=== PATIENT | female | born 1960 | race Asian ===

== ENCOUNTER → 2018-02-26 14:28 | Outpatient (CLI) | payer OTHER, SELFPAY ==
--- NOTE | 2018-02-26 | DI.MG.S_ITS ---
BILATERAL DIGITAL SCREENING MAMMOGRAM 3D/2D WITH CAD WITH AUGMENTATION: 02/26/2018 CLINICAL: Routine screening. Comparison is made to exams dated: 05/10/2016 mammogram, 05/04/2015 mammogram, and 11/13/2012 mammogram - [facility]. The tissue of both breasts is extremely dense, which lowers the sensitivity of mammography. Current study was also evaluated with a Computer Aided Detection (CAD) system. Bilateral breast implants are stable. No significant masses, calcifications, or other findings are seen in either breast. There has been no significant interval change. IMPRESSION: BENIGN There is no mammographic evidence of malignancy. A 1 year screening mammogram is recommended. This exam was interpreted at Station ID: [id number]. NOTE: For mammograms, a report in lay terms will be sent to the patient. Approximately 15% of breast malignancies will not be visualized mammographically. In the management of a palpable breast mass, a negative mammogram must not discourage biopsy of a clinically suspicious lesion. Electronically Signed By: Ravi perea/kuldip:03/01/2018 07:00:32 letter sent: Normal Exam ACR BI-RADS Category 2: Benign Finding(s) 3342F
== END ==
PROVIDERS: Family Provider Family Medicine; PCP Family Medicine; Visit Provider Family Medicine
DX: Z12.31 Encounter for screening mammogram for malignant neoplasm of breast (principal)
CPT/HCPCS: 77063; 77067

== ENCOUNTER → 2019-04-09 11:06 | Outpatient (CLI) | payer OTHER, SELFPAY ==
--- NOTE | 2019-04-09 | DI.MG.S_ITS ---
BILATERAL DIGITAL SCREENING MAMMOGRAM 3D/2D WITH CAD WITH AUGMENTATION: 04/09/2019 CLINICAL: Routine screening. Comparison is made to exams dated: 02/26/2018 mammogram, 05/10/2016 mammogram, 05/04/2015 mammogram, 11/13/2012 mammogram, and 11/10/2011 mammogram - [facility]. The tissue of both breasts is extremely dense, which lowers the sensitivity of mammography. Current study was also evaluated with a Computer Aided Detection (CAD) system. There is an oval asymmetry with an obscured margin in the right breast middle depth superior region seen on the mediolateral oblique view only. Bilateral breast implants are present and appear stable to prior exams. No other significant masses, calcifications, or other findings are seen in either breast. IMPRESSION: INCOMPLETE: NEEDS ADDITIONAL IMAGING EVALUATION The oval asymmetry in the right breast is indeterminate. Additional views with possible ultrasound are recommended. This exam was interpreted at Station ID: [id number]. NOTE: For mammograms, a report in lay terms will be sent to the patient. Approximately 15% of breast malignancies will not be visualized mammographically. In the management of a palpable breast mass, a negative mammogram must not discourage biopsy of a clinically suspicious lesion. Electronically Signed By: Ravi Graham M.D. ecl/:04/09/2019 20:07:18 letter sent: Additional Imaging Needed ACR BI-RADS Category 0: Incomplete 3340F
--- NOTE | 2019-04-09 | DI.RAD.S_ITS ---
PROCEDURE: XR FOOT RT MIN 3V INDICATIONS: BUNION,RIGHT FOOT,PAIN TECHNIQUE: The views of the foot were acquired. COMPARISON: None. FINDINGS: Bones: No fractures or dislocations. No suspicious bony lesions. There is degenerative joint disease moderate at the first metatarsophalangeal joint, and mild at multiple interphalangeal joins. Calcaneal spurring. Osteophytes of the sesamoids. Soft tissues: No tibiotalar joint effusion. Achilles tendon appears normal. IMPRESSION: Degenerative joint disease and calcaneal spurring. Dictated by: Prachi Condon M.D. on 04/09/2019 at 18:14 Approved by: Prachi Condon M.D. on 04/09/2019 at 18:17
== END ==
PROVIDERS: PCP Student in an Organized Health Care Education/Training Program; Visit Provider Student in an Organized Health Care Education/Training Program
DX: Z12.31 Encounter for screening mammogram for malignant neoplasm of breast (principal); M21.611 Bunion of right foot; M79.671 Pain in right foot; M19.071 Primary osteoarthritis, right ankle and foot; M77.31 Calcaneal spur, right foot
CPT/HCPCS: 73630; 77063; 77067

== ENCOUNTER → 2019-05-07 12:45 | Outpatient (CLI) | payer OTHER, SELFPAY ==
--- NOTE | 2019-05-07 | DI.MG.S_ITS ---
UNILATERAL RIGHT DIGITAL DIAGNOSTIC MAMMOGRAM 3D/2D WITH ADDITIONAL VIEWS: 05/07/2019 CLINICAL: Additional evaluation requested from prior study. Comparison is made to exams dated: 04/09/2019 mammogram, 02/26/2018 mammogram, 05/10/2016 mammogram, and 05/04/2015 mammogram - [facility]. The tissue of right breast is extremely dense, which lowers the sensitivity of mammography. Asymmetry in the right breast middle depth superior region seen on the screening mediolateral oblique view only is not seen in additional views. No other significant masses or calcifications are seen in the breast. Implant is displaced from the field of view. IMPRESSION: INCOMPLETE: NEEDS ADDITIONAL IMAGING EVALUATION Asymmetry in the right breast is no longer seen. A targeted ultrasound is recommended for a second look due to the dense breast tissue. This exam was interpreted at Station ID: [id number]. NOTE: For mammograms, a report in lay terms will be sent to the patient. Approximately 15% of breast malignancies will not be visualized mammographically. In the management of a palpable breast mass, a negative mammogram must not discourage biopsy of a clinically suspicious lesion. Electronically Signed By: Albin Lao M.D. slc/:05/07/2019 14:00:47 ACR BI-RADS Category 0: Incomplete 3340F
--- NOTE | 2019-05-07 | DI.US.S_ITS ---
LIMITED ULTRASOUND OF RIGHT BREAST: 05/07/2019 CLINICAL: Patient returns today to evaluate a focal asymmetry in the right breast. Comparison is made to exams dated: 05/07/2019 mammogram, 04/09/2019 mammogram, 02/26/2018 mammogram, 05/10/2016 mammogram, 05/04/2015 mammogram, and 11/13/2012 mammogram - [facility]. Real-time ultrasound of the right breast 2 o'clock region was performed. Burris scale images of the real-time examination were reviewed. No significant abnormalities were seen sonographically in the right breast. IMPRESSION: NEGATIVE There is no sonographic evidence of malignancy. The abnormality seen on the screen mammogram most likely represents a ridge of fibroglandular tissue. Return to annual mammogram screening schedule is recommended. Exam results were conveyed to the patient by the software development leader. This exam was interpreted at Station ID: [id number]. Electronically Signed By: Albin Lao M.D. slc/:05/07/2019 13:59:34 letter sent: Normal Exam Ultrasound BI-RADS: 1 Negative
== END ==
PROVIDERS: PCP Student in an Organized Health Care Education/Training Program; Visit Provider Student in an Organized Health Care Education/Training Program
DX: R92.8 Other abnormal and inconclusive findings on diagnostic imaging of breast (principal); N64.89 Other specified disorders of breast
CPT/HCPCS: 76642; 77065; G0279

== ENCOUNTER → 2019-11-15 15:56 | Outpatient (CLI) | payer OTHER, SELFPAY ==
[2019-11-15 16:15] LABS: Add Manual Diff / Slide Review NO; Basophils Absolute Auto 100 /uL (0-100); Basophils Percent Auto 1.3 % (0-2); Eosinophils Absolute Auto 200 /uL (0-450); Eosinophils Percent Auto 1.8 % (2-4); Hematocrit 26.8 % (36-46); Lymphocytes Absolute Auto 1600 /uL (1100-4500); Lymphocytes Percent Auto 17.8 % (25-40); Mean Corpuscular HGB Conc 33.7 % (30-36); Mean Corpuscular Hemoglobin 31.1 PG (26-34); Mean Corpuscular Volume 92.3 fL (80-100); Monocytes Absolute Auto 600 /uL (0-900); Monocytes Percent Auto 6.9 % (3-14); Neutrophils Absolute Auto 6600 /uL (1500-7000); Neutrophils Percent Auto 72.2 % (50-75); Platelet Count 833 X10^3/uL (150-400); Red Blood Cell Count 2.91 X10^6/uL (4.0-5.2); Red Cell Distribution Width 16.1 % (11.6-14.8); White Blood Cell Count 9.2 X10^3/uL (4.5-11.0)
[2019-11-15 16:37] LABS: Anisocytosis 2+; Hypochromasia 2+; Poikilocytosis 1+
[2019-11-15 17:27] LABS: TSH w/ Reflex to FT4 5.23 uIU/mL (0.47-4.68)
[2019-11-15 17:55] LABS: Free T4, Direct Thyroxine 1.07 ng/dL (0.78-2.19)
== END ==
PROVIDERS: PCP Student in an Organized Health Care Education/Training Program; Referring Provider Student in an Organized Health Care Education/Training Program; Visit Provider Student in an Organized Health Care Education/Training Program
DX: D64.9 Anemia, unspecified (principal); E03.9 Hypothyroidism, unspecified
CPT/HCPCS: 36415; 84439; 84443; 85025

== ENCOUNTER → 2020-05-11 10:00 | Outpatient (CLI) | payer OTHER, SELFPAY ==
--- NOTE | 2020-05-11 | DI.MG.S_ITS ---
BILATERAL DIGITAL SCREENING MAMMOGRAM 3D/2D WITH CAD WITH AUGMENTATION: 05/11/2020 CLINICAL: Routine screening. Comparison is made to exams dated: 04/09/2019 mammogram, 02/26/2018 mammogram, and 05/10/2016 mammogram - [facility]. The tissue of both breasts is extremely dense, which lowers the sensitivity of mammography. Current study was also evaluated with a Computer Aided Detection (CAD) system. Bilateral breast implants are stable. No significant masses, calcifications, or other findings are seen in either breast. There has been no significant interval change. IMPRESSION: NEGATIVE There is no mammographic evidence of malignancy. A 1 year screening mammogram is recommended. This exam was interpreted at Station ID: [id number]. NOTE: For mammograms, a report in lay terms will be sent to the patient. Approximately 15% of breast malignancies will not be visualized mammographically. In the management of a palpable breast mass, a negative mammogram must not discourage biopsy of a clinically suspicious lesion. Electronically Signed By: Alma Rosa ventura/kuldip:05/12/2020 16:38:21 letter sent: Normal Exam ACR BI-RADS Category 1: Negative 3341F
== END ==
PROVIDERS: PCP Student in an Organized Health Care Education/Training Program; Referring Provider Student in an Organized Health Care Education/Training Program; Visit Provider Student in an Organized Health Care Education/Training Program
DX: Z12.31 Encounter for screening mammogram for malignant neoplasm of breast (principal)
CPT/HCPCS: 77063; 77067

== ENCOUNTER → 2020-10-01 11:57 | Outpatient (CLI) | payer OTHER, SELFPAY ==
[2020-10-01] MEDS: COVID-19 VACC #1, MRNA(MOD) 100 MCG/0.5 ML VIAL IM (12:04)
== END ==
PROVIDERS: PCP Student in an Organized Health Care Education/Training Program; Visit Provider Internal Medicine
DX: Z23 Encounter for immunization (principal)
CPT/HCPCS: 0011A; 91301

== ENCOUNTER → 2020-10-29 10:15 | Outpatient (CLI) | payer OTHER, SELFPAY ==
[2020-10-29] MEDS: COVID-19 VACC #2, MRNA(MOD) 100 MCG/0.5 ML VIAL IM (10:23)
== END ==
PROVIDERS: PCP Student in an Organized Health Care Education/Training Program; Visit Provider Internal Medicine
DX: Z23 Encounter for immunization (principal)
CPT/HCPCS: 0012A; 91301

== ENCOUNTER → 2021-05-13 10:28 | Outpatient (CLI) | payer OTHER, SELFPAY ==
--- NOTE | 2021-05-13 10:30 | DI.MG.S_ITS ---
BILATERAL DIGITAL SCREENING MAMMOGRAM 3D/2D WITH CAD WITH AUGMENTATION: 05/13/2021 CLINICAL: Routine screening. Comparison is made to exams dated: 05/11/2020 mammogram, 04/09/2019 mammogram, and 02/26/2018 mammogram - [facility]. The tissue of both breasts is extremely dense, which lowers the sensitivity of mammography. Current study was also evaluated with a Computer Aided Detection (CAD) system. Bilateral breast implants are stable. No significant masses, calcifications, or other findings are seen in either breast. There has been no significant interval change. IMPRESSION: NEGATIVE There is no mammographic evidence of malignancy. A 1 year screening mammogram is recommended. This exam was interpreted at Station ID: [id number]. NOTE: For mammograms, a report in lay terms will be sent to the patient. Approximately 15% of breast malignancies will not be visualized mammographically. In the management of a palpable breast mass, a negative mammogram must not discourage biopsy of a clinically suspicious lesion. Electronically Signed By: Sander osman/kuldip:05/13/2021 11:30:56 letter sent: Normal Exam ACR BI-RADS Category 1: Negative 3341F
[2021-05-13 13:30] LABS: Thyroid Stimulating Hormone 0.043 uIU/mL (0.47-4.68)
== END ==
PROVIDERS: PCP Student in an Organized Health Care Education/Training Program; Referring Provider Student in an Organized Health Care Education/Training Program; Visit Provider Student in an Organized Health Care Education/Training Program
DX: Z12.31 Encounter for screening mammogram for malignant neoplasm of breast (principal); E03.9 Hypothyroidism, unspecified
CPT/HCPCS: 36415; 77063; 77067; 84443

== ENCOUNTER → 2022-06-17 12:49 | Outpatient (CLI) | payer OTHER, SELFPAY ==
--- NOTE | 2022-06-17 | DI.MG.S_ITS ---
BILATERAL DIGITAL SCREENING MAMMOGRAM 3D/2D WITH CAD WITH AUGMENTATION: 06/17/2022 CLINICAL: Routine screening. Comparison is made to exams dated: 05/13/2021 mammogram, 05/11/2020 mammogram, and 04/09/2019 mammogram - [facility]. Both breasts are extremely dense, which lowers the sensitivity of mammography (category d />75% glandular tissue). Current study was also evaluated with a Computer Aided Detection (CAD) system. Bilateral breast implants are stable. No significant masses, calcifications, or other findings are seen in either breast. There has been no significant interval change. IMPRESSION: NEGATIVE There is no mammographic evidence of malignancy. A 1 year screening mammogram is recommended. This exam was interpreted at Station ID: [id number]. NOTE: For mammograms, a report in lay terms will be sent to the patient. Approximately 15% of breast malignancies will not be visualized mammographically. In the management of a palpable breast mass, a negative mammogram must not discourage biopsy of a clinically suspicious lesion. Electronically Signed By: Baltazar lee/kuldip:06/17/2022 19:16:21 letter sent: Normal Exam ACR BI-RADS Category 1: Negative 3341F
== END ==
PROVIDERS: PCP Family Medicine; Referring Provider Family Medicine; Visit Provider Family Medicine
DX: Z12.31 Encounter for screening mammogram for malignant neoplasm of breast (principal)
CPT/HCPCS: 77063; 77067

== ENCOUNTER → 2023-07-14 12:49 | Outpatient (CLI) | payer OTHER, SELFPAY ==
--- NOTE | 2023-07-14 | DI.MG.S_ITS ---
BILATERAL DIGITAL SCREENING MAMMOGRAM 3D/2D WITH CAD WITH AUGMENTATION: 07/14/2023 CLINICAL: Routine screening. Comparison is made to exams dated: 06/17/2022 mammogram, 05/13/2021 mammogram, and 05/11/2020 mammogram - [facility]. Both breasts are extremely dense, which lowers the sensitivity of mammography (category d />75% glandular tissue). Current study was also evaluated with a Computer Aided Detection (CAD) system. Bilateral breast implants are stable. No significant masses, calcifications, or other findings are seen in either breast. There has been no significant interval change. IMPRESSION: BENIGN There is no mammographic evidence of malignancy. A 1 year screening mammogram is recommended. Based on the Tyrer Cuzick model (a risk assessment model) the patient's lifetime risk is 15.5% and her 10 year risk is 6.6%. According to the ACR, ACS, and NCCN guidelines, an annual breast MRI exam along with mammogram is recommended if the patient's lifetime risk is 20% or greater. This exam was interpreted at Station ID: [id number]. NOTE: For mammograms, a report in lay terms will be sent to the patient. Approximately 15% of breast malignancies will not be visualized mammographically. In the management of a palpable breast mass, a negative mammogram must not discourage biopsy of a clinically suspicious lesion. Electronically Signed By: Carleen Nash M.D., PH.D andi/kuldip:07/14/2023 23:35:33 letter sent: Normal Exam ACR BI-RADS Category 2: Benign Finding(s) 3342F
== END ==
LOC: MAMMO 12:50
PROVIDERS: PCP Family Medicine; Referring Provider Family Medicine; Visit Provider Family Medicine
DX: Z12.31 Encounter for screening mammogram for malignant neoplasm of breast (principal); R92.343 Mammographic extreme density, bilateral breasts
CPT/HCPCS: 77063; 77067

== ENCOUNTER → 2024-07-31 15:06 | Outpatient (CLI) | payer OTHER, SELFPAY ==
--- NOTE | 2024-07-31 15:07 | DI.MG.S_ITS ---
BILATERAL DIGITAL SCREENING MAMMOGRAM 3D/2D WITH CAD WITH AUGMENTATION: 07/31/2024 CLINICAL: Routine screening. Comparison is made to exams dated: 07/14/2023 mammogram, 05/13/2021 mammogram, and 06/17/2022 mammogram - [facility]. The breasts are extremely dense, which lowers the sensitivity of mammography (category d />75% glandular tissue). Current study was also evaluated with a Computer Aided Detection (CAD) system. Bilateral breast implants are stable. No significant masses, calcifications, or other findings are seen in either breast. There has been no significant interval change. IMPRESSION: NEGATIVE There is no mammographic evidence of malignancy. A 1 year screening mammogram is recommended. Based on the Tyrer Cuzick model (a risk assessment model) the patient's lifetime risk is 15.1% and her 10 year risk is 6.7%. According to the ACR, ACS, and NCCN guidelines, an annual breast MRI exam along with mammogram is recommended if the patient's lifetime risk is 20% or greater. This exam was interpreted at Station ID: [id number]. NOTE: For mammograms, a report in lay terms will be sent to the patient. Approximately 15% of breast malignancies will not be visualized mammographically. In the management of a palpable breast mass, a negative mammogram must not discourage biopsy of a clinically suspicious lesion. Electronically Signed By: Baltazar khan/kuldip:08/01/2024 07:23:25 letter sent: Normal Exam ACR BI-RADS Category 1: Negative
== END ==
PROVIDERS: PCP Family Medicine; Referring Provider Family Medicine; Visit Provider Family Medicine
DX: Z12.31 Encounter for screening mammogram for malignant neoplasm of breast (principal); R92.343 Mammographic extreme density, bilateral breasts
CPT/HCPCS: 77063; 77067

== ENCOUNTER 2025-05-30 07:34 | Day surgery (SDC) | payer OTHER, SELFPAY ==
[2025-05-23 12:40] VITALS: BMI 26.7
--- NOTE | 2025-05-30 | PATH_ITS ---
[facility] Accession Number: [id number] No. of containers..02 Tissue . 01 Material submitted: . PART A: colon - COLON, ASCENDING POLYP PART B: colon - COLON, TRANSVERSE . 01 Diagnosis: A: ASCENDING COLON, POLYPECTOMY: Sessile serrated adenoma/polyp. - B: TRANSVERSE COLON: Mild active chronic colitis, negative for granulomas, dysplasia, or malignancy, see comment. [facility] 06/03/2025 1508 Local . 01 Comment: Part B: The differential includes infection, medication-related injury, and mucosal trauma/prolapse, and inflammatory bowel disease among others. Clinical correlation is recommended. . 01 Electronically signed: . Brandi Lockett MD, Pathologist NPI- [id number] . 01 Gross description: . A. Received in formalin with two patient identifiers, and ascending colon polyp are two, 0.5-0.7 cm rios tissue fragments, entirely submitted in A1. B. Received in formalin with two patient identifiers, and transverse colon are four, 0.2-0.4 cm rios tissue fragments, entirely submitted in B1. ([id number]) /MRV 06/03/2025 1110 Local . 01 Pathologist provided ICD-10: R19.5 . 01 CPT . 799544, [id number] Specimen Comment: A courtesy copy of this report has been sent to [phone] Performed at: [address] [facility] [address], [place], [place] [id number] MD Sander Santiago MD Phone: [phone]
[2025-05-30 08:27] VITALS: BP 141/78; PULSE 84; RESP 16; TEMP 36.3; O2SAT 98
[2025-05-30] MEDS: LACTATED RINGERS 1,000 ML 42 ML IV (08:30)
--- NOTE | 2025-05-30 08:39 | PM.PREOP ---
Pre-operative Note COVID-19 COVID-19 status: Not tested Interval Note History & Physical reviewed/Exam performed by Physician: Yes Changes to H&P: No ASA Class (for procedural sedation): III
--- NOTE | 2025-05-30 09:26 | P.OP.COLON_ITS ---
Operative Date/Time/Diagnoses Date of procedure: 05/30/25 Time of procedure: 09:26 Pre-op diagnosis: Positive fecal immunochemical test Post-op diagnosis: same Procedure & Clinicians Study performed: Colonoscopy Same procedure(s) as scheduled: Yes Surgeon: Alessandro Gomez Anesthesia Type: MAC +/- Procedure Notes Procedure in detail: Surgeon: Alessandro Gomez MD Anesthesia: Soheila Vitor PSYCHIATRIC AIDE INSTRUCTOR Procedure: The patient was brought to the endoscopy suite, placed in left late ral decubitus position. The patient was connected to monitoring devices. A time-out was performed. Sedation was administered. Once the patient was adequately sedated, a digital rectal exam was performed and was normal. The scope was then inserted and advanced to the cecum where the appendiceal orifice was identified and photographed. The scope was then slowly withdrawn over greater than 6 minutes. The mucosa was thoroughly inspected. There was a sessile 1 cm polyp in the ascending colon removed with a cold snare in two passes. There was a short segment of inflamed, denuded mucosa in the mid transverse colon and biopsies were taken with Jumbo forceps. The rest of the colon was normal. The scope was retroflexed in the rectum. No other abnormalities were found. The scope was straightened and removed. The patient was awakened and brought to recovery. Scope withdrawal time: 21 minutes Sedation time: 25 minutes Findings: 1 cm sessile polyp in the ascending colon and a short-segment of inflamed denuded mucosa in the mid transverse colon Estimated Blood Loss: 5 Complications: none Post-procedure Disposition: PACU
[2025-05-30 09:28] VITALS: BP 142/78; PULSE 82; RESP 16; TEMP 36.3; O2SAT 96
[2025-05-30 09:30] VITALS: BP 130/72; PULSE 73; RESP 16; TEMP 36.3; O2SAT 99
[2025-05-30 09:35] VITALS: BP 127/72; PULSE 71; RESP 20; TEMP 36.2; O2SAT 99
[2025-05-30 09:40] VITALS: BP 127/75; PULSE 71; RESP 20; TEMP 36.2; O2SAT 99
[2025-05-30 09:45] VITALS: BP 128/75; PULSE 71; RESP 20; TEMP 36.2; O2SAT 97
== END 2025-05-30 09:58 | disposition home or self-care (01) ==
PROVIDERS: PCP Family Medicine; Referring Provider Surgery; Visit Provider Surgery
PROC: 0DJD8ZZ Inspection of Lower Intestinal Tract, Via Natural or Artificial Opening Endoscopic (ICD-10-PCS; CPT 45378; principal; 2025-05-30 09:00)
DX: Z12.11 Encounter for screening for malignant neoplasm of colon (principal); R19.5 Other fecal abnormalities; I25.2 Old myocardial infarction; Z79.01 Long term (current) use of anticoagulants; D12.2 Benign neoplasm of ascending colon; K52.9 Noninfective gastroenteritis and colitis, unspecified
CPT/HCPCS: 45385; 45380; J2704; J7120